=== PATIENT | female | born 1935 | race Caucasian/White ===

== ENCOUNTER 2016-09-26 21:01 | Inpatient (IN) | payer MEDICARE, BC ==
[~2016-09-26] VITALS: Ht 163.8 cm; Wt 71.2 kg
--- NOTE | ~2016-09-26 | ESTC ---
Cardiac Perfusion Imaging Demographics Patient Name EDISON Alcantara Gender Female Patient Number [id number] Race Visit Number [id number] Ethnicity Corporate ID Room Number G6314 Accession Number [id number] Height 64 inches Date of 1935 Weight 156 pounds Interpreting Gaby Pillai Date of study 09/27/2016 Physician Supervising /KENY Recinos APRN NM Technologist Julian Scruggs Ordering Physician Jairo Paige APRN Stress refrigerator repair technician Stress ECG Reading Jairo Recinos APRN Nurse Narendra Delgado RN Physician Rhoda Aguilar RN Procedure Procedure Type: Nuclear Stress Test:Cardiolite Stress Test Procedure Start time: 09/27/2016 09:45 Indications: Chest pressure. Risk Factors The patient risk factors include:prior PCI on 06/10/2004;treated hypercholesterolemia, treated hypertension and orally-treated diabetes mellitus. Conclusions Summary Perfusion Images: The overall quality of the study is good. Left ventricular cavity is noted to be normal on the stress and normal on the rest images. There is no evidence of abnormal lung activity. The right ventricle is not visualized an cannot be assessed. Impression ECG portion of the lexiscan stress test is clinically negative for ischemia by diagnostic criteria. Myocardial perfusion imaging is moderately abnormal. The images reveal a partially reversible defect in the basal to mid inferolateral wall s/o periinfarct ischemia and small defect in distal anterior wall consistent with small size/mild perfusion defect s/o ischemia . Overall left ventricular systolic function was normal. Calculated LVEF is 78% and TID ratio is 1.2. This is a intermediate risk stress test. There are no previous studies for comparison . Stress Protocols Resting ECG Sinus rhythm with RBBB. Pre-stress physical exam: Patient assessed by Lm ECHAVARRIA prior to testing. Predicted HR: 138 bpm HR response: Appropriate BP response: Appropriate Reason for termination:Infusion complete ECG Findings No ECG changes suggestive of ischemia. Arrhythmias No rhythm abnormality. Symptoms Shortness of breath. Nausea. Headache. Complications Procedure complication: None. Stress Interpretation Appropriate hemodynamic response to Lexiscan. No significant ST-T wave changes with Lexiscan. ECG portion is negative for ischemia by diagnostic criteria. Will correlate with nuclear images. Imaging Results Summed scores - Summed stress score: 21 - Summed rest score: 15 - Summed difference score: 6 Stress ejection Ejection fraction:79 % EDV :48 ml ESV :10 ml Stroke volume :38 ml LV mass :89 gr Imaging Protocols Rest Stress Isotope:Tc99m Sestamibi IV Isotope: Tc99m Sestamibi IV Isotope dose:10.9 mCi Isotope dose:34.8 mCi Date:09/27/2016 09:42 Date:09/27/2016 11:31 Technique: SPECT Technique: Gated Supine SPECT Supine IV remains in place after procedure. Scan Time:45-60 minutes post Scan Time:45-60 minutes post injection injection Procedure Medications - Regadenoson (Lexiscan) 0.4 mg IV over 10-15 sec. I.V. 0.4 mg. - Aminophylline 50 mg IV I.V. 62.5 mg. Medical History Admission Data Admission date: 09/26/2016 Admission Time: 23:13 Hospital Status: Inpatient. Signatures dtt: JOSIE TAYLOR dtd: 09/27/16 0945 Physician Self Edit
--- NOTE | ~2016-09-26 | CON ---
PATIENT'S NAME: JM HOGAN [facility] AGE: 80 Y [address] ROOM: [place] [address] LOCATION: GPCU ADMIT DATE: 09/26/2016 Consultation DISCHARGE DATE: FAMILY PHYSICIAN: Alexander Avilez MD ATTENDING PHYSICIAN: Alexander Avilez DATE OF CONSULTATION: 09/27/2016 REFERRING PHYSICIAN: JOSIE TAYLOR MD CARDIOLOGY CONSULTATION REASON FOR CARDIOLOGY CONSULTATION: Angina. HISTORY OF PRESENT ILLNESS: This is an 80-year-old female, who follows normal cardiac care with Dr. Warren. She has a previous history of coronary artery disease with a coronary artery stenting in 2006. She states she last saw Dr. Warren earlier this year. She presents to the [facility] Emergency Department with complaints of right shoulder pain, chest pressure, and diaphoresis. She has been having increased episodes of these symptoms and they have all been very similar in nature. Last time, she noted these symptoms was about 2 weeks ago while she was on vacation in the [place] and states she was very active during that time during the onset of symptoms. This admission was precipitated due to her being out in her yard pulling weeds. During the complaints of chest pressure and diaphoresis, she denies any nausea or vomiting. She also denies palpitations. She admits to some right shoulder pain but does state that they could be related to her chronic back pain after a fall. She does state she has been having plans for outpatient physical therapy due to her back and arm pain. She denies any complaints of presyncope, or syncope. She also denies any changes to her bowel or bladder, and also denies any shortness of breath or cough. PAST MEDICAL HISTORY: 1. Coronary artery disease. 2. Hypertension. 3. Hyperlipidemia. 4. Diabetes mellitus, type 2. 5. GERD. 6. Compression fracture of T11. 7. Stage I colon cancer, currently in remission. 8. Depression. PAST SURGICAL HISTORY: 1. Appendectomy. PATIENT'S NAME: JM HOGAN [facility] AGE: 80 Y [address] ROOM: [place] [address] LOCATION: GPCU ADMIT DATE: 09/26/2016 Consultation DISCHARGE DATE: FAMILY PHYSICIAN: Alexander Avilez MD ATTENDING PHYSICIAN: Alexander Avilez 2. Coronary artery stenting in 2006. 3. Left knee replacement, 2011. 4. Right knee replacement, 2012. 5. Bowel resection for colon cancer. 6. Hysterectomy. FAMILY HISTORY: Both of her parents had a history of heart disease. Specifically, her mother had a history of a pacemaker placed when she was 70. She has one sister with heart disease, and a daughter with a history of breast cancer. SOCIAL HISTORY: The patient denies ever using tobacco. She does admit to social alcohol use on 1 day a week and on those day, she will have only one drink. She denies illicit drug use. CURRENT MEDICATIONS: 1. Heparin IV per ACS protocol. 2. Nitroglycerin IV with titrations for chest pain. 3. Flonase 2 sprays intranasally in the evening. 4. Carafate 1 g p.o. daily before meal and in the evening. 5. Evista 60 mg p.o. daily in the evening. 6. Lipitor 40 mg p.o. daily in the evening. 7. MiraLAX 17 g p.o. daily in the evening. 8. Protonix 40 mg p.o. daily in the evening. 9. Toprol-XL 25 mg p.o. daily in the evening. 10. Zoloft 50 mg p.o. daily in the evening. 11. NovoLog subcutaneous on a mild sliding scale per b.i.d. Accu-Cheks. MEDICATION ALLERGIES: 1. Penicillin causing hives. 2. Sulfa causing nausea and vomiting. 3. Morphine causing nausea and vomiting. 4. Codeine causing nausea and vomiting. REVIEW OF SYSTEMS: Pertinent positive review of systems listed in the HPI. All other review of systems evaluated and negative. DIAGNOSTICS: CMS evaluation shows a sodium of 139, potassium 3.9, BUN of 20, creatinine 0.9, and glucose of 140. She has a magnesium of 1.9, and a proBNP of 237. She has a D-dimer of 0.32. Cardiac enzyme trend shows a CPK of 38 x3 values. A CK-MB of 1.0 x2 values followed by a 1.1, and a troponin I of less than 0.04 x3 values. CBC evaluation shows a white blood cell count of 8.8, hemoglobin PATIENT'S NAME: JM HOGAN [facility] AGE: 80 Y [address] ROOM: G6314 [place] [address] LOCATION: GPCU ADMIT DATE: 09/26/2016 Consultation DISCHARGE DATE: FAMILY PHYSICIAN: Alexander Avilez MD ATTENDING PHYSICIAN: Aelxander Avilez A of 12.1, hematocrit 37.8, and platelets of 526,000. PHYSICAL EXAMINATION: VITAL SIGNS: Temperature 97.8, pulse 88, respirations 17, blood pressure 167/71, and O2 saturation 95% on room air. The patient weighs 71 kg. SKIN: [place], warm, and dry. EYES: Sclerae clear. No xanthelasmas. ENT: Oral mucosa is pink and moist. No jugular venous distention or carotid bruits. CHEST: Respirations are even and unlabored. LUNGS: Clear to auscultation. HEART: Regular rate and rhythm. Normal S1 and S2. No murmurs, rubs, or gallops. ABDOMEN: Soft and nontender. MUSCULOSKELETAL: Gait is normal. EXTREMITIES: Peripheral pulses palpable. No clubbing, cyanosis, or edema. PSYCHIATRIC: Alert and oriented. Mood and affect are appropriate. IMPRESSION AND PLAN: Per Dr. Khan: 1. Exertional angina. 2. History of coronary artery disease with previous coronary artery stenting. 3. Hypertension. 4. Hyperlipidemia. 5. Diabetes mellitus, type 2. 6. History of compression fracture to T11. We will check an echocardiogram to fully evaluate her ejection fraction as well as to look for wall motion or valvular abnormalities. We will also proceed with a Lexiscan stress test for myocardial perfusion imaging due to her complaints of exertional angina and previous coronary artery disease history. We will also try and get the most recent cardiac records from Dr. Warren's office for full evaluation of her history. We will continue to monitor, evaluate, and treat as appropriate. Thank you for this consult. Thank you for allowing [facility] to interact in the care of this patient. JERICHO VENEGAS MD DEH/ceasra VELASQUEZ: 09/27/2016 17:00:48 PATIENT'S NAME: JM HOGAN [facility] AGE: 80 Y [address] ROOM: [id number] [place] [id number] [facility] ADMIT DATE: 09/26/2016 Consultation DISCHARGE DATE: FAMILY PHYSICIAN: Alexander Avilez MD ATTENDING PHYSICIAN: Alexander Avilez /[id number] d: 09/27/163 t: 10/03/16 0923, CONSULTATION REPORT
--- NOTE | ~2016-09-26 | ER ---
PATIENT'S NAME: JM HOGAN [facility] AGE: 80 Y [address] ROOM: [address] [address] [facility] ADMIT DATE: 09/26/2016 ER/Outpatient Report DISCHARGE DATE: FAMILY PHYSICIAN: Alexander Avilez MD ATTENDING PHYSICIAN: Alexander Avilez Admission date and time documented on the medical record. I saw the patient at 2115 hours. CHIEF COMPLAINT: Chest tightness, pain across the an upper anterior chest, right shoulder pain radiating down the right arm. HISTORY OF PRESENT ILLNESS: This patient is an 80-year-old female who was brought to the emergency room by private vehicle for evaluation. She was out in the yard pulling grass and weeds. About 15 minutes prior to admission to the emergency room, she had an onset of pain across the upper anterior chest, right shoulder and arm pain. She got diaphoretic, nausea. No real shortness of breath. The patient does have coronary artery disease, had a cardiac cath with 1 stent placed in the LAD about 10 years ago. No myocardial infarction. No recent cold, coughs, flus, fever, chills, or sweats. No fall or trauma today. She did fall on Easter on her right side. No lightheadedness, dizziness, syncope, or near syncope. No abdominal pain. Has nausea, but no vomiting or diarrhea. No urinary symptoms. No joint or muscle swelling, redness, or pain other than the right shoulder. No skin eruptions or rash. The patient does have non- insulin-dependent diabetes mellitus type 2. Does have depression and anxiety. No psychosis. No neuro changes. HOME MEDICATIONS: See attached medication list. ALLERGIES: PENICILLIN, CODEINE, SULFA. SOCIAL HISTORY: Nonsmoker, nondrinker. SIGNIFICANT PAST MEDICAL HISTORY: Hypertension, atherosclerotic ischemic heart disease, coronary artery disease, dyslipidemia, colon cancer, peptic ulcer disease, gastroesophageal reflux, T11 compression fracture, constipation, frequent falls, ihk-fsawvcd-amiosnjfk diabetes mellitus type 2, degenerative joint disease, osteoporosis, degenerative osteoarthritis, depression, anxiety, diverticulosis, hiatal hernia, irritable bowel syndrome, small bowel obstruction. PATIENT'S NAME: JM HOGAN [facility] AGE: 80 Y [address] ROOM: G[address]14 [place], [place] [address] [facility] ADMIT DATE: 09/26/2016 ER/Outpatient Report DISCHARGE DATE: FAMILY PHYSICIAN: Alexander Avilez MD ATTENDING PHYSICIAN: Alexander Avilez OPERATIONS: Bladder surgery, abdominal surgery, appendectomy, bilateral total knee arthroplasty, cholecystectomy, colonoscopy, esophagogastroduodenoscopy, cardiac catheterization with PTCA and stenting, hysterectomy, tonsillectomy. REVIEW OF SYSTEMS: All systems reviewed by me are negative with exception of those discussed in the history of present illness. PHYSICAL EXAMINATION: VITAL SIGNS: Temperature 97.3, tympanic; pulse 102; respirations 16; blood pressure 184/68; O2 saturation on room air is 93%. HEENT: Head, normocephalic. No abrasion, contusion, laceration, swelling of the scalp or face. Eyes, ears, nose, and throat clear. Mucous membranes moist. NECK: Negative. No tenderness. No nuchal rigidity. No thyromegaly or cervical adenopathy. SPINE: Nontender. No deformity. LUNGS: Clear, good air flow. No rales, rhonchi, or wheezes. HEART: Regular. Pulses are palpable. No chest wall or ribcage pain to palpation. ABDOMEN: Soft, nondistended, nontender. Good bowel tones. No organomegaly or abnormal masses palpable. No CVA tenderness. PELVIS: Stable. EXTREMITIES: Has some tenderness in the right shoulder to palpation, range of motion is full. No swelling, no deformity. No peripheral edema or cyanosis. NEUROVASCULAR: Intact. SKIN: Clear. No skin eruptions or rash. DIAGNOSTIC DATA: EKG showed sinus rhythm; no acute ST elevation, ischemic change, or arrhythmia; does have a right bundle-branch block. No changes from previous EKGs. Chest x-ray showed no acute infiltrate or changes. We will review x- ray with the radiologist. CMS was normal except for an elevated glucose of 140. Magnesium 1.9. CPK was 38. Point of care cardiac enzymes were normal. ProBNP was 237. D-dimer 0.32. White count was 8800, 52 segs, 35 lymphs, 10 monos, 2 eos, 1 baso. Hemoglobin is 12.1 with hematocrit 37.8, platelet count is 526,000. PTT was 26, protime is 9.9, and INR 0.94. Did give the patient 2 baby aspirin orally here in the emergency room. The patient took 2 baby aspirin at home. I gave her nitroglycerin sublingual and switched her to IV nitroglycerin drip. Did improve her pain from an 8/10 to about a 1 to 2/10. IMPRESSION: 1. Chest pain with right shoulder pain, suspected unstable angina. PATIENT'S NAME: JM HOGAN [facility] AGE: 80 Y [address] ROOM: [id number] [place] [address] [facility] ADMIT DATE: 09/26/2016 ER/Outpatient Report DISCHARGE DATE: FAMILY PHYSICIAN: Alexander vAilez MD ATTENDING PHYSICIAN: Alexander Avilez 2. Known atherosclerotic ischemic heart disease and coronary artery disease. 3. Hypertension. 4. Dyslipidemia. 5. Gastroesophageal reflux with peptic ulcer disease. 6. Glk-iqnzmai-tohxeebqb diabetes mellitus type 2. PLAN: Discussed the patient with Dr. Freya Griffin, irrigation laborer. Dr. Freya Griffin thought she should come in, be n.p.o. after midnight for stress test tomorrow morning. She desired hospitalist to admit. I talked with Dr. Weinstein and he will admit. Dr. Avilez will take over tomorrow morning. Discussion ensued with the patient concerning my findings and recommendations and she understands. Accumulated critical care time 30 minutes. MD GARY ROGERS/modl /[id number] d: 09/27/16 0412 t: 09/27/16 1809, OUTPATIENT REPORT
--- NOTE | ~2016-09-26 | CATH ---
Cardiac Diagnostic + PCI Report Demographics Patient Name EDISON Alcantara Gender Female Date of 1935 Age 80 year(s) Patient Number [id number] Date of Study 09/28/2016 Visit Number [id number] Room Number G6314 [place] [id number] Ht 162.56 cm Wt 70.76 kg Referring Fatmata Tobias Primary Physician Physician Performing Efstratiou Secondary Physician Physician Lucie Tobias MD Diagnostic Efstratiou Assisting Physician Physician Lucie Tobias MD Interventional Efstratiou Physician Churn Driller Physician Lucie Tobias MD Findings and Conclusions Diagnostic Findings and Conclusion Severe diffuse disease of RCA. Ostial stenosis deteriorated during the procedure and a third stent became necessary Moderate disease in LAD. Diagnostic Recommendations PCI to RCA. Interventional Findings and Conclusion Successful ANGEL to ostial, mid, and distal RCA. Interventional Recommendations Aspirin and Brilinta for at least 1 month, could switch to Plavix later. Procedure Description The patient was brought to the diagnostic cardiac catheterization-EP laboratory in the fasting, non-sedated state. Informed consent was obtained in the written and verbal form after the risks and benefits were explained. The patient had no further questions and agreed to proceed. The planned puncture-incision site(s) were shaved and prepped with ChloraPrep and draped in the usual sterile manner. Conscious sedation, supplemental oxygen, and pain control medications were delivered by a registered nurse under physician guidance. Surface ECG rhythm, blood pressure measurement, and pulse oximetry were monitored throughout the procedure. Arterial access. The access site was infiltrated with lidocaine. The vessel was entered with the Seldinger technique. A sheath was advanced into the vessel and used for catheter placement. Selective left coronary angiography. A catheter was advanced into the left coronary vessel ostium under Fluoroscopic guidance. Contrast was injected by hand. Images were obtained in multiple projections. Selective right coronary angiography. A catheter was advanced into the right coronary vessel ostium under fluoroscopic guidance. Contrast was injected by hand. Images were obtained in multiple projections. Left heart catheterization. A catheter was advanced across the aortic valve to the left ventricle under fluoroscopic guidance. Resting hemodynamics were obtained. Angioplasty and Stent Placement: A guiding catheter was used to intubate the vessel. A 0.14 wire was then used to cross the lesion. A balloon catheter was placed across the lesion and inflated. The balloon catheter was then removed. A Drug Eluting Stent was placed and inflated. Post placement angiograms were performed. Arterial artery hemostasis was achieved. The patient was transferred to a regular nursing floor via cart accompanied by a nurse. The patient left the laboratory in stable condition. Diagnostic Cath Status: Urgent Interventional Cath Status: Urgent Procedure Procedure Type Diagnostic procedure:Angiography:, Coronary Angios /[facility] PCI procedure:Drug Eluting Coronary Stent:, RCA Indications: Abnormal Stress Test and Angina. The procedure was explained in detail to the patient. Risks, complications and alternative treatments were reviewed. Written consent was obtained. Medications Reviewed with Patient prior to Procedure. Angiographic Findings Dominance: Right Cardiac Arteries and Lesion Findings LMCA: Normal (0% Stenosis). LAD: Stent patent. Lesion on Prox LAD: Ostial.30% stenosis . Lesion on Dist LAD: 50% stenosis . LCx: Lesion on Mid CX: 20% stenosis . Lesion on 1st Ob Marian% stenosis . RCA: Lesion on Mid RCA: Distal subsection.80% stenosis 38 mm length reduced to 0%. Pre procedure NEREIDA III flow was noted. Post Procedure NEREIDA III flow was present. The guidewire cross was successful.The lesion was diagnosed as a high risk lesion.Culprit lesion. Treatment results:Interventional treatment was successful. Devices used - Emerge Balloon 2.5 x 20. 2 inflation(s) to a max pressure of: 15 nelly. - Promus Premier 3.0 x 38 Stent. 1 inflation(s) to a max pressure of: 14 nelly. - NC Emerge Balloon 3.5 x 15. 3 inflation(s) to a max pressure of: 18 nelly. Lesion on Dist RCA: Mid subsection.80% stenosis 16 mm length reduced to 0%. Pre procedure NEREIDA III flow was noted. Post Procedure NEREIDA III flow was present. The guidewire cross was successful.The lesion was diagnosed as a high risk lesion.Culprit lesion. Treatment results:Interventional treatment was successful. Devices used - Whisper Wire .014 x 190. Number of passes: 1. - Promus Premier 2.75 x 16 Stent. 1 inflation(s) to a max pressure of: 15 nelly. - NC Emerge Balloon 3.0 x 12. 1 inflation(s) to a max pressure of: 18 nelly. Lesion on Prox RCA: Ostial.60% stenosis 12 mm length reduced to 0%. Pre procedure NEREIDA III flow was noted. Post Procedure NEREIDA III flow was present. The guidewire cross was successful.The lesion was diagnosed as a high risk lesion. Treatment results:Interventional treatment was successful. Devices used - Promus Premier 3.0 x 12 Stent. 1 inflation(s) to a max pressure of: 20 nelly. - NC Emerge Balloon 3.5 x 15. 1 inflation(s) to a max pressure of: 20 nelly. Coronary Tree Procedure Data Procedure Date Date: 09/28/2016Start: 11:03 AMEnd: 12:11 PM Entry Locations - Retrograde Percutaneous access was performed through the Right Radial artery (Primary location). A 6 Fr sheath was inserted. Hemostasis was successfully obtained using Mechanical Compression. Closure Comments: R band with 10 cc air applied by RT. Malka. Procedure Medications Order and Administration + + + + + !Time !Medication !Dosage !Route ! + + + + + !09/28/2016 11:07 AM!Radial Nitroglycerin !200 mcg !I.A. ! + + + + + !09/28/2016 11:07 AM!Radial Heparin (ACC_3) !2500 units!I.A. ! + + + + + !09/28/2016 11:07 AM!Radial Verapamil !3 mg !I.A. ! + + + + + !09/28/2016 11:15 AM!Heparin (ACC_3) !4000 units!I.V. ! + + + + + !09/28/2016 11:08 AM!Fentanyl !25 mcg !I.V. ! + + + + + !09/28/2016 12:03 PM!Nitroglycerin !300 mcg !I.C. ! + + + + + !09/28/2016 12:04 PM!Heparin (ACC_3) ! !I.V. drip ! + + + + + !09/28/2016 12:04 PM!Pinailinta (Ticagrelor) (ACC_20)!180 mg !P.O. ! + + + + + Devices Used - A6 Fr. BS JR 4 Diag. Catheterwas used for:Right coronary angiography. - A6 Fr. BS JL 3.5 Diag. Catheterwas used for:Left coronary angiography. - A6 Fr. AR1 guide catheterwas used for:RCA Intervention. - A6 Fr. Guidlinerwas used for:RCA Intervention. Contrast Material - Isovue [id number] ml Fluoroscopy Time: Diagnostic: 22:48 minutes. Total: 22:48 minutes. Fluoroscopy Dose: Diagnostic: 1210 mGy. Total: 1210 mGy. Estimated Blood Loss: [address] [facility] PCI Information PCI Indication:PCI for high risk Non-STEMI or unstable angina. Medical History Performed Procedures and Imaging Results - Stress testing with SPECT MPIwas performed. Results were: Positive. Risk/Extent of ischemia was: Intermediate risk. Allergies - Penicillin. - Sulfa. - Morphine. - Codiene. - Other:(Hydrocodone). Risk Factors The patient risk factors include:prior PCI on 06/10/2004;treated hypercholesterolemia, treated hypertension, family history of premature CAD, orally-treated diabetes mellitus, last creatinine: 0.7 mg/dl, creatinine clearance: 69.22 ml/min and dyslipidemia. Admission Data Admission Date: 09/28/2016 Admission Time: 12:10 PM Admit Source: Emergency department Insurance Payors: Medicare. Admission Medications + +------+------+ + + + + !Medication !Dosage!Times !Last !Last !Administered !Comments ! ! ! !Per !Delivery !Delivery ! ! ! ! ! !Day !Date !Time ! ! ! + +------+------+ + + + + !ARB (any) ! ! ! ! !Yes ! ! + +------+------+ + + + + !Beta ! ! ! ! !Yes ! ! !Sameer ! ! ! ! ! ! ! !(any) ! ! ! ! ! ! ! + +------+------+ + + + + !Statin ! ! ! ! !Yes ! ! !(any) ! ! ! ! ! ! ! + +------+------+ + + + + Clinical Evaluation Leading to Procedure - The patient's CAD presentation was assessed as: Unstable angina. - The patient's anginal syndrome during the past two weeks was assessed as: Class III according to the [place] Cardiovascular Society Classification System (CCS). Anti-anginal medications were prescribed during the past two weeks. The medication is: Beta Blockers. Snapshots Hemodynamics Condition: Rest O2 Consumption: Estimated: 158.10Heart Rate: 71 bpm Pressures (mmHg) +-----+ + !Site !Pressure ! +-----+ + !LV !134/0 ,8 ! +-----+ + !LV !111/22 ,5 ! +-----+ + !LV !161/5 ,7 ! +-----+ + !LV !162/4 ,8 ! +-----+ + !AO !161/67 (109) ! +-----+ + !AO !153/61 (98) ! +-----+ + Shunts Oxygen Values O2 Capacity 141.44 O2 Consumption 158.1 Signatures dtt: Gracy Khan dtd: 09/28/16 1103 Physician Self Edit
--- NOTE | ~2016-09-26 | ECHO ---
Transthoracic Echocardiography Report (TTE) Demographics Patient Name JM HOGAN Date of Study 09/27/2016 Patient Number [id number] Visit Number [id number] Date of 1935 Room Number G6314 Gender Female Number Age 80 year(s) Referring Fatmata Tobias Hydrochloric Acid Operator Shawn Hwang MD Physician Interpreting Bill Faulkner Water Treatment Operator Physician A Supervising Ordering Jairo Paige APRN, MD/MLP Physician Nurse Stress Meat Cutter Apprentice Conclusions Contractility Score Summary Summary The estimated left ventricular ejection fraction is 55-60%. Mild septal left ventricular hypertrophy. Diastolic assessment reveals Grade I diastolic dysfunction. The left atrium is mildly dilated. Procedure Type of Study TTE procedure:2D Echocardiogram, M-Mode, Doppler , Color Doppler. Procedure Date Date: 09/27/2016 Start: 11:42 AM Study Location: Echo Lab Technical Quality: Adequate visualization Indications:Angina. Appropriate Use Criteria: 9 Patient Status: Routine HR: 81 bpm BP: 168/74 mmHg M-Mode/2D Measurements LV Diastolic Dimension: 3.07 cm LV Systolic Dimension: 1.95 cm LV Septum Diastolic: 1.18 cm LV PW Diastolic: 1.05 cm AO Root Dimension: 2.5 cm Cardiac Output: 5.37 l/min LA Dimension: 2.3 cm EF Estimated: 55 % LVOT: 1.9 cm LVOT VTI: 23.4 cm RV Base: 1.87 cm LV Stroke volume: 66.31 ml RV Length: 6.2 cm TAPSE: 1.69 cm TDI-S': 9.54 cm/s Doppler Measurements AV Peak Velocity: 1.41 m/s MV Peak E-Wave: 0.82 m/s AV Peak Gradient: 7.95 mmHg MV Peak A-Wave: 1.11 m/s AV Mean Gradient: 4 mmHg MV E/A Ratio: 0.74 LVOT Peak Velocity: 1.07 m/s MV P1/2t: 60 msec TR Gradient:5.38 mmHg PV Peak Velocity: 1 m/s Estimated RAP:3 mmHg PV Peak Gradient: 4 mmHg Estimated RVSP: 8 mmHg Estimated PASP: 8.38 mmHg E' Septal Velocity: 0.06 m/s A' Septal Velocity: 0.1 m/s E' Lateral Velocity: 0.06 m/s A' Lateral Velocity: 0.14 m/s Findings Left Ventricle Mild septal left ventricular hypertrophy. Diastolic assessment reveals Grade I diastolic dysfunction. Right Ventricle Mildly dilated right ventricle. Normal right ventricular systolic performance. Left Atrium The left atrium is mildly dilated. Right Atrium Normal right atrial size. IVC measures 1.57 cm with inspiratory collapse. Mitral Valve Normal mitral valve structure and function. Aortic Valve The aortic valve is mildly sclerotic. Tricuspid Valve Trivial tricuspid regurgitation by color Doppler. Pulmonic Valve Normal pulmonic valve structure and function. Pericardial Effusion No evidence of pericardial effusion. Miscellaneous Visualized portions of the aortic root appears normal in size. Pleural Effusion No evidence of pleural effusion. Signature dtt: Gracy Khan dtd: 09/27/16 1142 Physician Self Edit
--- NOTE | ~2016-09-26 | DS ---
PATIENT'S NAME: CONCHA RIVERS [facility] AGE: 80 Y [address] ROOM: [place] [address] LOCATION: GPCU ADMIT DATE: 09/28/2016 Discharge Summary DISCHARGE DATE: 09/30/2016 FAMILY PHYSICIAN: Kristen Carcamo MD ATTENDING PHYSICIAN: Kristen Carcamo CONSULTS: Cardiology (Dr. Khan). PROCEDURES: 1. Stress test with echocardiogram. 2. Cardiac catheterization with right coronary artery stent. PRINCIPAL DIAGNOSIS: Exertional angina secondary to coronary artery disease of her right coronary artery, status post right coronary artery stent. SECONDARY DIAGNOSES: 1. Coronary artery disease, status post right coronary artery stent with history of left anterior descending stent in 2006. 2. Yfr-uenbujj-bltueorsw diabetes mellitus, type 2. 3. Hypertension. 4. Gastroesophageal reflux disease. 5. Hyperlipidemia. 6. Depression. 7. Irritable bowel syndrome. 8. Osteoporosis. 9. Osteoarthritis. 10. History of colon cancer. 11. History of vertebral fracture. HISTORY OF PRESENT ILLNESS: Concha Rivers is an 80-year-old female who presented to the emergency department by private vehicle for chest pain, diaphoresis, and nausea that occurred during exertion. EKG showed no acute changes, and cardiac enzymes were within normal limits. Her chest pain improved with nitroglycerin. She was moved to [facility] with plans for a stress test the following morning. HOSPITAL COURSE: Concha was admitted following the acute coronary syndrome admission orders which included nitroglycerin and heparin protocols. Cardiology planned for a stress test the following morning. On hospital day 2, her blood pressures were poorly controlled in the 160s to 170s systolic, and her losartan was increased to 100 mg. Her hemoglobin A1c was 8.1%, up from 6.4% in May 2016. Her stress test showed right ventricular hypertrophy, anterior and posterolateral ischemia, and an ejection fraction of 85%. Cardiology planned for a heart catheterization the following day. On hospital day 3, her blood pressures were still uncontrolled with systolic PATIENT'S NAME: CONCHA RIVERS [facility] AGE: 80 Y [address] ROOM: [place] [address] LOCATION: GPCU ADMIT DATE: 09/28/2016 Discharge Summary DISCHARGE DATE: 09/30/2016 FAMILY PHYSICIAN: Kristen Carcamo MD ATTENDING PHYSICIAN: Kristen Carcamo blood pressures reaching a high of 205 systolic. Orders were written for alprazolam as needed for anxiety, which was probably contributing to high blood pressures. Her heart catheterization showed 80% stenosis of her right coronary artery, and an RCA stent was placed. On hospital day 4, Concha felt much better after her RCA stent, but her blood pressures were still high in the 170s systolic. She was kept overnight to get her blood pressure under control. Her metoprolol succinate was increased to 100 mg. on hospital day 5, her blood pressures were in the 150s systolic, and she was discharged home. DISCHARGE MEDICATIONS: 1. Atorvastatin 40 mg. 2. Losartan 100 mg, increased from her admission dose of 50 mg. 3. Albuterol sulfate 2 puffs as needed every 4 hours. 4. Metoprolol succinate 50 mg, increased from her admission dose of 25 mg. 5. Sertraline 50 mg. 6. Sucralfate 1 g 4 times daily with meals and before bedtime. 7. Multivitamin. 8. Ferrous gluconate 324 mg at bedtime. 9. Cholecalciferol 1000 units once daily. 10. Metformin 500 mg twice daily. 11. Acetaminophen 500 mg, 1000 mg every 6 hours as needed. 12. Cetirizine 10 mg as needed for allergies. 13. Fluticasone 2 sprays per nostril once daily. 14. Aspirin 81 mg once daily. 15. Ubidecarenone 50 mg once daily. 16. Calcium with Vitamin D 500 mg 2 tablets every day. 17. Esomeprazole magnesium 40 mg once daily. 18. Probiotic. 19. Raloxifene 60 mg at bedtime. 20. Polyethylene glycol 17 g at bedtime. 21. Amlodipine 2.5 mg, this is a new medication to help control her blood pressures during her hospital stay. 22. Hydrochlorothiazide 25 mg once daily. 23. Ticagrelor 90 mg twice daily. CONDITION: Fair. DISPOSITION: Concha was discharged home with followup with Dr. Kristen Carcamo in 10 to [address] Khan in 2 weeks. She was told to monitor her blood pressures at home and let us know if they are consistently above 150/90 or below 100/60. She was also counseled on eating a low-sugar diet since her hemoglobin A1c went up 1.7% in the last 4 months. PATIENT'S NAME: CONCHA RIVERS [facility] AGE: 80 Y [address] ROOM: [id number] [place] [id number] [facility] ADMIT DATE: 09/28/2016 Discharge Summary DISCHARGE DATE: 09/30/2016 FAMILY PHYSICIAN: Kristen Carcamo MD ATTENDING PHYSICIAN: Kristen Carcamo HORACE CADENA, MEDICAL STUDENT FOR KRISTEN CARCAMO MD AT/modl /[id number] d: 10/01/16 1124 t: 10/03/16 [facility], DISCHARGE SUMMARY
--- NOTE | ~2016-09-26 | HP ---
PATIENT'S NAME: JM HOGAN [facility] AGE: 80 Y [address] ROOM: [address] [address] [facility] ADMIT DATE: 09/26/2016 History & Physical DISCHARGE DATE: FAMILY PHYSICIAN: Alexander Avilez MD ATTENDING PHYSICIAN: Alexander Avilez DATE OF SERVICE: CHIEF COMPLAINT: Chest pain. HISTORY OF PRESENT ILLNESS: The patient is an 80-year-old female who has had a history of a stent placed in the LAD back in 2006 who came in to the [facility] Emergency Room with complaints of chest pain. She states she was pulling weeds at that time, started developing some pressure across the anterior aspect of her chest, was diaphoretic, and had some right-sided shoulder pain. Her shoulder pain has been off and on a little bit since she fell walking at lunch on . She had not had that seen to this point. She did get some improvement with her heaviness with sublingual nitroglycerin and now is on an IV drip. She really has not had any evaluation per her chart for her heart disease since her stress test in 2006. PAST MEDICAL HISTORY: Significant for allergic rhinitis, coronary artery disease, history of compression fracture of T11 back in April 2016, depression, type 2 diabetes mellitus, hypertension, GERD, hiatal hernia, hyperlipidemia, IBS, stage I colon cancer, and PMR. MEDICATIONS: Her chronic medications include: 1. Aspirin 81 mg once a day. 2. Coenzyme Q10 one a day. 3. Os-Reece plus D one p.o. b.i.d. 4. Metoprolol succinate 25 mg one p.o. daily. 5. Nexium 40 mg one a day. 6. Pravastatin 40 mg one a day. 7. Multivitamin one a day. 8. Vitamin D at bedtime. 9. Cetirizine 10 mg one a day. 10. Fluoxetine 60 mg one a day. 11. Colace 100 mg once a day. 12. MiraLAX 17 g one a day. 13. Atorvastatin 40 mg q.h.s. 14. Losartan 50 mg one a day. PATIENT'S NAME: JM HOGAN [facility] AGE: 80 Y [address] ROOM: [id number] [place], [place] [address] LOCATION: GPCU ADMIT DATE: 09/26/2016 History & Physical DISCHARGE DATE: FAMILY PHYSICIAN: Alexander Avilez MD ATTENDING PHYSICIAN: Alexander Avilez 15. Metformin 1000 mg b.i.d. 16. Montelukast 10 mg one a day. 17. Sertraline 50 mg one a day. 18. Carafate 1 g q.a.c. and q.h.s. ALLERGIES: PENICILLIN, SULFA, AND CODEINE. PRIOR SURGERIES: She has had an appendectomy and bladder surgery done by Dr. Guerrero, hysterectomy, heart catheterization with stent placement in LAD in 2006, left knee replaced in 2011, right knee replacement in 2012, and then a partial resection of her large bowel, secondary to colon cancer as well as her tonsils being removed. REVIEW OF SYSTEMS: As per HPI, otherwise noncontributory, full 13-point was gone through and updated. PHYSICAL EXAMINATION: VITAL SIGNS: Weight 69.5 kg, pulse 102, respirations 16, temperature 97.3, O2 saturation 93% on room air, and blood pressure 184/68. GENERAL: The patient is a nontoxic-appearing female in no acute distress. HEENT: Normocephalic and atraumatic. Ears, TMs are clear and intact bilaterally. Nose patent. Throat clear. NECK: Without lymphadenopathy. HEART: Regular rate and rhythm without audible murmur. LUNGS: Clear to auscultation bilaterally without wheezes, rhonchi, or rales. ABDOMEN: Soft, nontender, nondistended. Bowel sounds positive. There is no hepatosplenomegaly. No guarding or rebound. EXTREMITIES: No clubbing, cyanosis, or edema. NEURO: No focal deficits. LABORATORY DATA: Sodium 139, potassium 3.9, chloride 108, CO2 25, glucose 140, calcium 8.6, BUN 20, creatinine 0.9, albumin 3.8, bilirubin 0.2, alk phos 83, AST 14, ALT 21, estimated GFR is 60, magnesium is 1.9, CPK is 38, MB is 1.0, troponin is less than 0.040. Pro-BNP is 237, D-dimer is 0.32. EKG shows no acute changes. ASSESSMENT AND PLAN: An 80-year-old white female with the following problem list. 1. Chest pain with exertion, that is resolved with nitroglycerin and history of coronary artery disease with her diaphoresis and her symptoms, it pretty make sense, go ahead and put her in, and rule her out and then get a stress test done. Cardiology was contacted regarding this. PATIENT'S NAME: JM HOGAN [facility] AGE: 80 Y [address] ROOM: [place] [address] LOCATION: GPCU ADMIT DATE: 09/26/2016 History & Physical DISCHARGE DATE: FAMILY PHYSICIAN: Alexander Avilez MD ATTENDING PHYSICIAN: Alexander Avilez 2. History of type 2 diabetes mellitus. She is overall stable with her A1c with her last one being done in May, which was 6.4%. 3. Right-sided shoulder pain. No evidence of any fracture per x-ray. 4. History of T11 compression fracture, overall stable. 5. Gastrointestinal reflux disease, overall stable. 6. Hyperlipidemia, currently on a statin. 7. History of colon cancer, no current symptoms. Dr. Avilez will assume care in the morning of this patient who is normally his. ROSA JO MD TAB/modl /[id number] D: [id number] T: [id number] HISTORY & PHYSICAL
[~2016-09-26 21:01] MED LIST: CARAFATE1 GM PO; COQ-10100 MG PO; COZAAR50 MG PO; CYCLOBENZAPRINE5 MG PO; FERROUS GLUCON324 MG PO; FLONASE 50 MCG/16 GM NOSE; GLUCOPHAGE500 MG PO; LEVAQUIN500 MG PO; LIPITOR40 MG PO; PRENATAL 1+1)(P1 TAB PO; PROAIR HFA8.5 GM INH; TOPROL XL25 MG PO; TYLENOL EXTRA500 MG PO; VITAMIN D1000 UNI1 PO; ZOLOFT50 MG PO; ZYRTEC10 MG PO
[2016-09-26 21:19] LABS: BASOPHIL % 0.5 %; EOSINOPHIL # 0.2 K/uL (0.0-0.5); EOSINOPHIL % 2.4 %; HEMATOCRIT 37.8 % (30.0-46.0); HEMOGLOBIN 12.1 g/dL (10.0-15.0); IMMATURE GRANULOCYTE % 0.1 %; LYMPHOCYTE # 3.1 K/uL (0.8-4.0); LYMPHOCYTE % 35.2 %; MCH 25.1 pg (27.0-34.0); MCV 78.4 fl (83.0-98.0); MONOCYTE # 0.9 K/uL (0.0-1.0); MONOCYTE % 9.7 %; MPV 8.5 fl (9.4-12.4); NEUTROPHIL # (ANC) 4.6 K/uL (1.8-7.8); NEUTROPHIL % 52.1 %; NRBC % 0 /100WBC (0-0.00); PLATELET COUNT 526 K/uL (150-450); RBC 4.82 M/uL (3.00-5.00); RDW-CV 18.1 % (11.9-14.6); WBC 8.8 K/uL (4.0-11.0)
[2016-09-26 21:57] LABS: INR - (THERAPEUTIC) 0.94 (0.92-1.07); PROTIME 9.9 SECONDS (9.8-11.4); PTT 26 SECONDS (25-32)
[2016-09-26 22:05] LABS: ALBUMIN 2.8 gm/dL (3.5-5.0); ALK PHOS 83 IU/L (33-138); ALT 21 IU/L (12-78); ANION GAP 9.9 (10.0-19.0); AST 14 IU/L (10-40); BLOOD UREA NITROGEN 20 mg/dL (6-24); CALCIUM 8.6 mg/dL (8.5-10.5); CHLORIDE 108 mMol/L (96-110); CO2 25 mMol/L (22-32); CPK 38 IU/L (21-215); CREATININE 0.9 mg/dL (0.5-1.1); ESTIMATED GFR (MDRD EQUATION) 60; MAGNESIUM 1.9 mg/dL (1.8-2.6); POTASSIUM 3.9 mMol/L (3.7-5.1); SODIUM 139 mMol/L (135-145); TOTAL BILIRUBIN 0.2 mg/dL (0.0-1.5); TOTAL PROTEIN 6.7 g/dL (6.0-8.4)
[2016-09-27 00:14] LABS: CPK 38 IU/L (21-215)
[2016-09-27] MEDS ORDERED: ASPIRIN (CHILDR81 MG PO (00:26)
[2016-09-27] MEDS ORDERED: COQ1050 MG PO (00:27)
[2016-09-27] MEDS ORDERED: OSCAL + D500 MG PO (00:30)
[2016-09-27] MEDS ORDERED: NEXIUM40 MG PO (00:32)
[2016-09-27] MEDS ORDERED: ALIGN4 MG PO (00:37)
[2016-09-27] MEDS ORDERED: EVISTA60 MG PO (00:38)
[2016-09-27] MEDS ORDERED: MIRALAX17 GM PO (00:39)
--- NOTE | 2016-09-27 01:06 | NUR ---
PATIENT ADMITTED TO FLOOR FROM ER AT 0005 AND TRANSPORTED UP HERE VIA WHEELCHAIR. VSS. IV INTACT WITH NITRO RUNNING AT 5 MCG/MIN AND NS AT 75ML/HR. PATIENT CAME TO ER BY SELF AFTER EXPERIENCING RIGHT SHOULDER PAIN RADIATING ACCROSS CHEST ALONG WITH PERFUSE DIAPHORESIS AND NAUSEA WILL WORKING OUTSIDE IN YARD. PATIENT WALKED INTO HOUSE WITH NO IMPROVEMENT SO DECDIED TO COME IN. PATIENT HAD RECENT FALL WHERE SHE TRIPPED AND FELL ONTO RIGHT SHOULDER. XRAY DONE IN ER SHOWS NO FRACTURE. EKG CAME BACK SINUS RHYTHM. CARDIAC ENZYMES AND OVERALL LABS WNL. PATIENT HAS PAST MEDICAL HISTORY OF HTN, ONE STENT, NON INSULIN DEPENDENT DM, COLON CANCER, CAD, HIATAL HERNINA, GERD, HIGH CHOLESTEROL, AND OSTEOARTHRITIS. DR JO ADMITTED INER FOR DR CARCAMO. DR KAMARA CONSULTED. POSSIBLE STRESS TEST IN AM.
[2016-09-27 03:05] LABS: BILIRUBIN URINE NEGATIVE (NEGATIVE); BLOOD URINE NEGATIVE /UL (NEGATIVE); COLOR URINE YELLOW (YELLOW); GLUCOSE URINE NEGATIVE (NEGATIVE); KETONE URINE NEGATIVE (NEGATIVE); LEUKOCYTES URINE 25 /UL (NEGATIVE); NITRITE URINE NEGATIVE (NEGATIVE); PROTEIN URINE NEGATIVE (NEGATIVE); SPEC GRAVITY URINE 1.015 (1.003-1.035); TURBIDITY URINE CLEAR (CLEAR); UROBILINOGEN URINE NORMAL (NORMAL)
[2016-09-27 03:15] LABS: BACTERIA URINE RARE (NEGATIVE); EPITHELIAL URINE 0-2 #/HPF (NEGATIVE); HYALINE CAST URINE 0-2 #/LPF (NEGATIVE); MUCUS URINE 1+ (NEGATIVE); RBC URINE NEGATIVE #/HPF (NEGATIVE); WBC URINE 0-2 #/HPF (NEGATIVE)
--- NOTE | 2016-09-27 04:13 | NUR ---
Significant Event: PATIENT IS A/O X3. VSS. HR 60'S. SBP 150-160'S. AFEBRILE. 02 SATS IN MID 90'S ON RA. NO C/O PAIN. LUNGS CLEAR/DIM TO DIM. HAS T11 COMPRESSION FX AND RIGHT SHOULDER PAIN FROM RECENT FALL. NO RADIATING CHEST PAIN NOTED. APPETITE DECREASED. CARDIAC DIET BUT NPO FOR POSSIBLE STRESS TEST. SCATTERED MOLES TO BACK AND CHEST/ABDOMEN. ABRASION TO RIGHT KNEE AND LEFT MULLIGAN SCABBED. RIGHT INNER FOREARM WITH NS AT 75ML/HR, HEPARIN AT 900 UNITS/HR, AND NITRO AT 5MCG/MIN. DR KAMARA CONSULTED. Follow up: STRESS TEST IN AM?
[2016-09-27 05:09] LABS: CPK 38 IU/L (21-215)
[2016-09-27 10:26] LABS: CPK 45 IU/L (21-215)
[2016-09-27 17:16] LABS: CPK 54 IU/L (21-215)
--- NOTE | 2016-09-27 17:19 | NUR ---
Significant Event: Alert and oriented x 3. SBP 160's and 170's. HR 80's. Stress test done today. Heart cath tomorrow at 1130. Peripheral IV to left forearm. Heparin infusing at 1000 units per hour. Normal saline infusing at 100 ml/hr. Nitro stopped this am before stress test. Up with SBA. Pleasant and cooperative with cares. Follow up:
--- NOTE | 2016-09-28 05:00 | NUR ---
Significant Event: A/O, very anxious about heart cath and having high blood pressures, SBP 160-205, BP meds given along with Amlodipine started, SBP this am 144/63, RA, HR- 70-90s, Heparin gtt at 1000 units/hr, NS at 100 ml/hr, excellent UOP, SBA to bathroom, NPO since [place] for heart cath at 1130 this am Follow up: continue plan of care
[2016-09-28 05:22] LABS: BASOPHIL % 0.6 %; EOSINOPHIL # 0.2 K/uL (0.0-0.5); EOSINOPHIL % 2.5 %; HEMATOCRIT 31.8 % (30.0-46.0); HEMOGLOBIN 10.1 g/dL (10.0-15.0); IMMATURE GRANULOCYTE % 0.4 %; LYMPHOCYTE # 2.1 K/uL (0.8-4.0); LYMPHOCYTE % 29.2 %; MCH 24.9 pg (27.0-34.0); MCHC 31.8 gm/dL (32.0-36.5); MCV 78.5 fl (83.0-98.0); MONOCYTE # 0.6 K/uL (0.0-1.0); MONOCYTE % 8.7 %; MPV 8.5 fl (9.4-12.4); NEUTROPHIL # (ANC) 4.2 K/uL (1.8-7.8); NEUTROPHIL % 58.6 %; NRBC % 0 /100WBC (0-0.00); PLATELET COUNT 427 K/uL (150-450); RBC 4.05 M/uL (3.00-5.00); WBC 7.2 K/uL (4.0-11.0)
[2016-09-28 05:36] LABS: INR - (THERAPEUTIC) 1.01 (0.92-1.07); PROTIME 10.6 SECONDS (9.8-11.4)
[2016-09-28 05:43] LABS: ALBUMIN 2.6 gm/dL (3.5-5.0); ALK PHOS 74 IU/L (33-138); ALT 18 IU/L (12-78); AST 15 IU/L (10-40); BLOOD UREA NITROGEN 10 mg/dL (6-24); CHLORIDE 111 mMol/L (96-110); CO2 25 mMol/L (22-32); CREATININE 0.7 mg/dL (0.5-1.1); ESTIMATED GFR (MDRD EQUATION) > 60; SODIUM 143 mMol/L (135-145); TOTAL PROTEIN 6.3 g/dL (6.0-8.4)
[2016-09-28 05:44] LABS: TOTAL BILIRUBIN 0.3 mg/dL (0.0-1.5)
--- NOTE | 2016-09-28 16:14 | NUR ---
Introduced self and role of care management to patient. She lives in [place] [facility] by herself. She states that she is able to do all her own ADL's. She uses a cane in the house. She states that she has a daughter that is able to assist as needed. She plans on returning home on discharge. She denies any needs at this time. Will continue to follow.
--- NOTE | 2016-09-28 20:20 | NUR ---
Significant Event: Alert and oriented X 3. Room air. SBP 175, 122, 168. HR 50's and 60's. Heart cath with 3 stents to RCA. Right radial approach. Radial compression band on. 9 ml air released by 1730. Bleeding began during removal of band. Band replaced and 10 ml air reapplied. Good pulse and feeling in hand. Area soft around band. Complained of headache when returned from engineer geophysical laboratory. Tylenol given. Complaint of stomach full of gas. Zofran given X 1, relief noted. Up with 1 assist and gait belt. Peripheral IV to right forearm with Normal saline infusing at 100 ml per hour. Accuchecks at 0700 and 2100 with sliding scale. Pleasant and cooperative with cares. Follow up:
--- NOTE | 2016-09-29 05:04 | NUR ---
Significant Event: Pt A&Ox3. Vital signs stable, remains on RA. Pt has a hurt arm on that Rt shoulder area where she fell. No real c/o pain except for lab draws. PIV Lt hand, SL. 1PA to bathroom. Is slighty unsteady while walking. Cardiac diet. Accuchecks only, mild scale. Haven't had to correct. Pt's son-in-law is Dr. Weinstein. Continue plan of care. Follow up: Pt to discharge today.
[2016-09-29 08:34] LABS: ALBUMIN 2.6 gm/dL (3.5-5.0); ALK PHOS 71 IU/L (33-138); ALT 16 IU/L (12-78); ANION GAP 12.2 (10.0-19.0); AST 21 IU/L (10-40); BLOOD UREA NITROGEN 14 mg/dL (6-24); CALCIUM 8.4 mg/dL (8.5-10.5); CHLORIDE 113 mMol/L (96-110); CO2 23 mMol/L (22-32); CREATININE 0.8 mg/dL (0.5-1.1); ESTIMATED GFR (MDRD EQUATION) > 60; POTASSIUM 4.2 mMol/L (3.7-5.1); SODIUM 144 mMol/L (135-145); TOTAL BILIRUBIN 0.3 mg/dL (0.0-1.5); TOTAL PROTEIN 6.4 g/dL (6.0-8.4)
--- NOTE | 2016-09-29 17:09 | NUR ---
Significant Event:Patient SBP remains elevated, was given another dose of Lopressor 50 mg in am, and then this afternoon she got 25 mg HCTZ. Right wrist is soft, dressing is dry. Has ambulated in hallway several times. Accucheck this am-130. No SSI given. Will monitor cardiac enzymes and EKG. Follow up:Home tomorrow
--- NOTE | 2016-09-30 05:13 | NUR ---
Significant Event: DENIES PAIN ALL NIGHT. UP AD LAURA IN ROOM AND IN [place]. GAIT STEADY UNLESS JUST WAKING UP AND THEN SHE WAS SLIGHTLY UNSTABLE. BP REMAINS SLIGHTLY ELEVATED ALL NIGHT. Follow up:
[2016-09-30] MEDS ORDERED: NORVASC2.5 MG PO (14:53)
[2016-09-30] MEDS ORDERED: HYDRODIURIL25 MG PO (14:54)
[2016-09-30] MEDS ORDERED: BRILINTA90 MG PO (14:55)
--- NOTE | 2016-09-30 16:39 | NUR ---
I HAVE READ AND AGREE WITH CHARTING DONE BY Cecilia LÓPEZ STUDENT NURSE.
[2016-12-13] MEDS ORDERED: PLAVIX75 MG PO (09:05)
== END 2016-09-30 15:25 | disposition disaster alternative care site (69) | DRG 247 ==
LOC: GMED 21:01 → GPCU 23:13
PROVIDERS: Emergency Medicine; Internal Medicine Cardiovascular Disease; ADMIT Family Medicine
PROC: 4A023N7 Measurement of Cardiac Sampling and Pressure, Left Heart, Percutaneous Approach (ICD-10-PCS; principal; 2016-09-28)
PROC: 027034Z Dilation of Coronary Artery, One Artery with Drug-eluting Intraluminal Device, Percutaneous Approach (ICD-10-PCS; 2016-09-28)
PROC: B211YZZ Fluoroscopy of Multiple Coronary Arteries using Other Contrast (ICD-10-PCS; 2016-09-28)
DX: I25.110 Atherosclerotic heart disease of native coronary artery with unstable angina pectoris (principal); E11.9 Type 2 diabetes mellitus without complications; F32.9 Major depressive disorder, single episode, unspecified; E78.5 Hyperlipidemia, unspecified; F41.9 Anxiety disorder, unspecified; J30.9 Allergic rhinitis, unspecified; K21.9 Gastro-esophageal reflux disease without esophagitis; K58.9 Irritable bowel syndrome, unspecified; M35.3 Polymyalgia rheumatica; M81.0 Age-related osteoporosis without current pathological fracture; Z85.038 Personal history of other malignant neoplasm of large intestine; Z90.710 Acquired absence of both cervix and uterus; Z87.81 Personal history of (healed) traumatic fracture; Z96.653 Presence of artificial knee joint, bilateral
CPT/HCPCS: A9500; C1725; C1769; C1874; C1887; C1894; C9600; G0378; J0280; J1644; J2405; J2785; J3010; J7030; J7050